=== PATIENT | male | born 1980 | race Two or more races ===

== ENCOUNTER 2017-01-03 10:00 | Emergency (ER) | payer MEDICAID ==
[2017-01-03 10:53] LABS: BASOPHIL % 0.3 % (0-2); PLATELET COUNT 253 x10^3mcL (130-400); RED CELL DISTRIBUTION WIDTH 12.8 % (11.5-14.5)
[2017-01-03 11:12] LABS: CALCIUM 9.1 mg/dL (8.5-10.1); CARBON DIOXIDE 29.3 mmol/L (21-32); CHLORIDE SERUM 102 mmol/L (98-107); GFR1 > 60 mL/min; GLUCOSE SERUM 103 mg/dL (74-106); POTASSIUM SERUM 3.7 mmol/L (3.5-5.1); SODIUM SERUM 139 mmol/L (136-145)
[2017-01-03 11:16] LABS: ALBUMIN 4.2 g/dL (3.4-5.0); ALKALINE PHOSPHATASE 66 U/L (46-116); ALT/SGPT 32 U/L (16-63); AST/SGOT 18 U/L (15-37); BILIRUBIN TOTAL 0.6 mg/dL (0.20-1.00); TOTAL PROTEIN, SERUM 7.6 g/dL (6.4-8.2)
[2017-01-03 11:56] VITALS: BP 144/85
== END 2017-01-03 11:56 | disposition home or self-care (01) ==
LOC: ED 10:00
PROVIDERS: Emergency Medicine
DX: H81.10 Benign paroxysmal vertigo, unspecified ear (principal)

== ENCOUNTER 2017-09-08 08:59 | Emergency (ER) | payer MEDICAID ==
[~2017-09-08] VITALS: Ht 177.8 cm; Wt 87.1 kg
[2017-09-08 10:30] VITALS: BP 160/92
== END 2017-09-08 10:45 | disposition home or self-care (01) ==
LOC: ED 08:59
DX: J02.9 Acute pharyngitis, unspecified (principal)
CPT/HCPCS: J1885

== ENCOUNTER 2017-09-14 22:08 | Emergency (ER) | payer MEDICAID ==
[~2017-09-14] VITALS: Ht 175.3 cm; Wt 92.1 kg
[2017-09-15 00:20] VITALS: BP 132/78
== END 2017-09-15 00:20 | disposition home or self-care (01) ==
LOC: ED 22:08
DX: K12.1 Other forms of stomatitis (principal)

== ENCOUNTER 2019-05-10 22:04 | Emergency (ER) | payer MEDICAID ==
[~2019-05-10] VITALS: Ht 177.8 cm; Wt 91.6 kg
[2019-05-10 22:41] VITALS: Ht 177.8 cm; Wt 91.6 kg
[2019-05-10 23:22] LABS: BASOPHIL % 0.5 % (0-2); PLATELET COUNT 258 x10^3mcL (130-400); RED CELL DISTRIBUTION WIDTH 13.4 % (11.5-14.5)
[2019-05-10 23:40] LABS: CALCIUM 8.8 mg/dL (8.5-10.1); CARBON DIOXIDE 26.4 mmol/L (21-32); CHLORIDE SERUM 103 mmol/L (98-107); GFR1 > 60 mL/min; GLUCOSE SERUM 118 mg/dL (74-106); POTASSIUM SERUM 3.8 mmol/L (3.5-5.1); SODIUM SERUM 141 mmol/L (136-145)
[2019-05-10 23:43] VITALS: BP 135/85
[2019-05-10 23:46] LABS: ALBUMIN 4.1 g/dL (3.4-5.0); ALKALINE PHOSPHATASE 73 U/L (46-116); ALT/SGPT 40 U/L (16-63); AST/SGOT 20 U/L (15-37); BILIRUBIN TOTAL 0.3 mg/dL (0.20-1.00); TOTAL PROTEIN, SERUM 7.1 g/dL (6.4-8.2)
== END 2019-05-11 00:48 | disposition home or self-care (01) ==
LOC: ED 22:04
PROVIDERS: Emergency Medicine
DX: R42 Dizziness and giddiness (principal)
CPT/HCPCS: 36415; 82962